=== PATIENT | male | born 1945 | race Caucasian/White ===

== ENCOUNTER → 2021-02-07 | Outpatient (CLI) | payer MEDICARE | LOC: HEART 5 14:32 | DX: J45.909 Unspecified asthma, uncomplicated (principal) | CPT/HCPCS: 94010 ==

== ENCOUNTER → 2021-04-12 | Outpatient (CLI) | payer MEDICARE ==
[~2021-04-12] VITALS: Ht 165.1 cm; Wt 77.1 kg
== END ==
LOC: HEART 5 08:59
DX: R79.81 Abnormal blood-gas level (principal); J45.909 Unspecified asthma, uncomplicated; R05.9 Cough, unspecified
CPT/HCPCS: J7674

== ENCOUNTER → 2021-04-24 | Outpatient (CLI) | payer MEDICARE | LOC: EXRD 08:36 | DX: R05.1 Acute cough (principal) | CPT/HCPCS: 71046 ==

== ENCOUNTER → 2021-11-04 | Outpatient (CLI) | payer MEDICARE | LOC: EXRD 09:10 | DX: R05.9 Cough, unspecified (principal) | CPT/HCPCS: 71046 ==